=== PATIENT | female | born 1950 | race Hispanic/Latino ===

== ENCOUNTER 2021-02-06 15:13 | Emergency (ER) | payer MEDICARE, OTHER ==
[~2021-02-06] VITALS: Ht 152.4 cm; Wt 59.0 kg
[2021-02-06] MEDS ORDERED: ULTRAM 50MG50 MG PO (15:32)
[2021-02-06] MEDS ORDERED: ACETAMINOPHEN500 MG PO (15:32)
== END 2021-02-06 15:55 | disposition home or self-care (01) ==
LOC: FSED 15:21
DX: S43.401A Unspecified sprain of right shoulder joint, initial encounter (principal); X50.0XXA Overexertion from strenuous movement or load, initial encounter; Y92.89 Other specified places as the place of occurrence of the external cause
CPT/HCPCS: 99283